=== PATIENT | female | born 1995 | race Caucasian/White ===

== ENCOUNTER 2021-11-08 20:55 | Emergency (ER) | payer BC ==
[~2021-11-08] VITALS: Ht 160 cm; Wt 86.0 kg
[2021-11-08 21:14] VITALS: BP 161/95
== END 2021-11-08 21:33 | disposition left against medical advice (07) ==
LOC: ER 20:55
DX: Z53.21 Procedure and treatment not carried out due to patient leaving prior to being seen by health care provider (principal)